=== PATIENT | female | born 1950 | race Caucasian/White ===

== ENCOUNTER 2017-07-19 14:32 | Observation (INO) | payer OTHER ==
[2017-07-19] VITALS (7 sets, daily range): BP systolic 96–145; BP diastolic 46–89; PULSE 72–97; RESP 15–20; TEMP 97.7–99.1; O2SAT 95–99
[~2017-07-19] VITALS: Ht 162.6 cm; Wt 80.0 kg
[2017-07-19] MEDS ORDERED: TRAZ50TA12 PO (15:31)
[2017-07-19] MEDS ORDERED: TIZA2CAP3 PO (15:31)
[2017-07-19] MEDS ORDERED: PANT20TA2 PO (15:31)
[2017-07-19] MEDS ORDERED: LORA0.5T PO (15:31)
[2017-07-19] MEDS ORDERED: LISI10TA3 PO (15:31)
[2017-07-19] MEDS ORDERED: SODIUM CHLOR 0.9% 1000 ML INJ 1,000 ML IV SCH (16:26)
[2017-07-19] MEDS ORDERED: NALOXONE HCL 2 MG/2 ML VIAL IV PUSH ONE (16:30)
[2017-07-19] MEDS ORDERED: SODIUM CHLORIDE 0.9% FLUSH 5 ML FLUSH IV FLUSH PRN (16:30)
--- NOTE | 2017-07-19 17:12 | RADRPT ---
EXAM DATE/TIME: 07/19/2017 16:55 [facility] COMPARISON: No previous studies available for comparison. INDICATIONS : Short of breath after syncopal episode. MEDICAL HISTORY : None. SURGICAL HISTORY : None. ENCOUNTER: Initial ACUITY: 1 day PAIN SCORE: Non-responsive. LOCATION: Bilateral chest FINDINGS: A single view of the chest demonstrates the lungs to be symmetrically aerated without evidence of mas s, infiltrate or effusion. Probable hiatal hernia. The cardiomediastinal contours are unremarkable. Osseous structures are intact. CONCLUSION: Probable hiatal hernia otherwise negative. Pio Esparza MD FACR on July 19, 2017 at 17:10 Board Certified Radiologist. This report was verified electronically.
--- NOTE | 2017-07-19 17:26 | RADRPT ---
EXAM DATE/TIME: 07/19/2017 17:06 [facility] COMPARISON: No previous studies available for comparison. INDICATIONS : Altered mental status, patient fell, abrasion right eye. RADIATION DOSE: 47.07 CTDIvol (mGy) MEDICAL HISTORY : None SURGICAL HISTORY : None. ENCOUNTER: Initial ACUITY: 3 days PAIN SCALE: Non-responsive LOCATION: cranial TECHNIQUE: Multiple contiguous axial images were obtained of the head. Using automated exposure control and adj ustment of the mA and/or kV according to patient size, radiation dose was kept as low as reasonably a chievable to obtain optimal diagnostic quality images. DICOM format image data is available electro nically for review and comparison. FINDINGS: CEREBRUM: The ventricles are normal for age. No evidence of midline shift, mass lesion, hemorrhage or acute in farction. No extra-axial fluid collections are seen. POSTERIOR FOSSA: The cerebellum and brainstem are intact. The 4th ventricle is midline. The cerebellopontine angle i s unremarkable. EXTRACRANIAL: The visualized portion of the orbits is intact. SKULL: The calvaria is intact. No evidence of skull fracture. Large venous lakes in the occiput. CONCLUSION: Negative for an acute process. Pio Esparza MD FACR on July 19, 2017 at 17:21 Board Certified Radiologist. This report was verified electronically.
--- NOTE | 2017-07-19 17:38 | RADRPT ---
EXAM DATE/TIME: 07/19/2017 17:06 [facility] COMPARISON: No previous studies available for comparison. INDICATIONS : Trauma, patient fell. RADIATION DOSE: 41.13 CTDIvol (mGy) ; Patient motion MEDICAL HISTORY : Non-responsive. SURGICAL HISTORY : Non-responsive. ENCOUNTER: Initial ACUITY: 3 days PAIN SCALE: Non-responsive LOCATION: neck TECHNIQUE: Volumetric scanning of the cervical spine was performed. Multiplanar reconstructions in the sagittal, coronal and oblique axial planes were performed. Using automated exposure control and adjustment o f the mA and/or kV according to patient size, radiation dose was kept as low as reasonably achievable to obtain optimal diagnostic quality images. DICOM format image data is available electronically f or review and comparison. FINDINGS: VERTEBRAE: Normal vertebral body height. ALIGNMENT: No evidence of subluxation. C2-C3: The bony spinal canal is normal in size. No evidence of disc bulge or herniation. The neural forami na are bilaterally patent. C3-C4: The bony spinal canal is normal in size. No evidence of disc bulge or herniation. The neural forami na are bilaterally patent. C4-C5: The bony spinal canal is normal in size. No evidence of disc bulge or herniation. The neural forami na are bilaterally patent. C5-C6: Mild uncinate ridging present. C6-C7: Mild uncinate ridging with minimal right neuroforaminal encroachment C7-T1: The bony spinal canal is normal in size. No evidence of disc bulge or herniation. The neural forami na are bilaterally patent. CONCLUSION: Negative for fracture. Pio Esparza MD FACR on July 19, 2017 at 17:34 Board Certified Radiologist. This report was verified electronically.
[2017-07-19] MEDS ORDERED: ONDANSETRON HCL 4 MG/2 ML VIAL IV PUSH ONE (18:00)
[2017-07-19 18:07] LABS: BASOPHIL % 0.4 % (0.0-2.0); EOSINOPHIL # 0.1 TH/MM3 (0-0.4); EOSINOPHIL % 1.2 % (0.0-4.0); HEMATOCRIT 33.6 % (35.0-46.0); HEMO FLAGS DIFF FINAL; LYMPH % 9.1 % (9.0-44.0); LYMPHOCYTE # 0.9 TH/MM3 (1.0-4.8); MEAN CELL VOLUME 93.3 FL (80.0-100.0); MEAN CORPUSCULAR HEMOGLOBIN 31.5 PG (27.0-34.0); MEAN CORPUSCULAR HGB CONC 33.7 % (32.0-36.0); MONO % 7.6 % (0.0-8.0); NEUT % 81.7 % (16.0-70.0); PLATELET COUNT 249 TH/MM3 (150-450); RED CELL DISTRIBUTION WIDTH 13.2 % (11.6-17.2); WHITE BLOOD COUNT 9.8 TH/MM3 (4.0-11.0)
--- NOTE | 2017-07-19 18:19 | PD ---
HPI Chief Complaint: Fall Time Seen by Provider: 14:49 Travel History International Travel<30 days: No Contact w/Intl Traveler<30days: No Traveled to known affect area: No History of Present Illness HPI This is a 67-year-old female with a history of chronic back pain, who was brought in by EMS after she reportedly has had several days of falls. Patient reports falling 3 days ago. She denies any loss of consciousness. She had 2 further falls today. She denies any pain but does appear to be weak and lethargic. The patient states she takes lorazepam, a muscle relaxer, and Lortabs for pain. She states that she has not taken more than her usual dose. There are no other complaints at the time of my examination. Medics were concerned that she may have had an intracranial injury and therefore brought her from the [facility] here. [facility] Past Medical History Tetanus Vaccination: Unknown Social History Alcohol Use: No Tobacco Use: No Substance Use: No Allergies-Medications (Allergen,Severity, Reaction): Coded Allergies: No Known Allergies (Unverified , 07/19/17) Reported Meds & Prescriptions Reported Meds & Active Scripts Active Reported Trazodone (Trazodone HCl) 50 Mg Tab 50 Mg PO HS Lorazepam 0.5 Mg Tab 0.5 Mg PO DAILY PRN Lisinopril 10 Mg Tab 10 Mg PO DAILY Tizanidine (Tizanidine HCl) 2 Mg Cap 2 Mg PO TID Pantoprazole (Pantoprazole Sodium) 20 Mg Tab 20 Mg PO DAILY Review of Systems ROS Limitations: Altered Mental Status (unable to get detailed history secondary to lethargy.) Except as stated in HPI: all other systems reviewed are Neg General / Constitutional: No: Fever, Chills HENT: No: Headaches, Neck Pain Cardiovascular: No: Chest Pain or Discomfort, Palpitations Respiratory: No: Cough, Shortness of Breath Gastrointestinal: No: Nausea, Vomiting, Abdominal Pain Genitourinary: No: Dysuria, Incontinence Musculoskeletal: No: Weakness, Pain Neurologic: Positive: Change in Mentation (lethargy), Slurred Speech (slight slurred speech), No: Weakness, Dizziness, Headache Physical Exam Narrative GENERAL: Well-developed well-nourished female in no acute distress. SKIN: Focused skin assessment warm/dry. HEAD: Abrasion to her right lateral eye. Normocephalic. EYES: Pupils equal and round and reactive at 3 mm. No scleral icterus. No injection or drainage. ENT: No nasal bleeding or discharge. Mucous membranes pink and dry. NECK: Trachea midline. No JVD. Supple. CARDIOVASCULAR: Regular rate and rhythm. No murmur appreciated. RESPIRATORY: No accessory muscle use. Clear to auscultation. Breath sounds equal bilaterally. GASTROINTESTINAL: Abdomen soft, non-tender, nondistended. MUSCULOSKELETAL: No obvious deformities. No clubbing. No cyanosis. No edema. NEUROLOGICAL: Awake and lethargic. No obvious cranial nerve deficits. Motor grossly within normal limits. Slurred speech Data Data Last Documented VS Vital Signs Date Time Temp Pulse Resp B/P (MAP) Pulse Ox O2 Delivery O2 Flow Rate FiO2 07/19/17 18:00 86 16 134/76 (95) 96 Nasal Cannula 2.00 07/19/17 14:39 97.7 Orders Orders Electrocardiogram (07/19/17 16:26) Ammonia (07/19/17 16:26) Complete Blood Count With Diff (07/19/17 16:26) Comprehensive Metabolic Panel (07/19/17 16:26) Creatine Kinase (Cpk) (07/19/17 16:26) Troponin I (07/19/17 16:26) Urinalysis - C+S If Indicated (07/19/17 16:26) Chest, Single Ap (07/19/17 16:26) Ct Brain W/O Iv Contrast(Rout) (07/19/17 16:26) Blood Glucose (07/19/17 16:26) Ecg Monitoring (07/19/17 16:26) Iv Access Insert/Monitor (07/19/17 16:26) Oximetry (07/19/17 16:26) Naloxone Inj (Narcan Inj) (07/19/17 16:30) Sodium Chloride 0.9% Flush (Ns Flush) (07/19/17 16:30) Sodium Chlor 0.9% 1000 Ml Inj (Ns 1000 M (07/19/17 16:26) Drug Screen, Random Urine (07/19/17 16:26) Alcohol (Ethanol) (07/19/17 16:26) Ct Cerv Spine W/O Contrast (07/19/17 16:26) Ondansetron Inj (Zofran Inj) (07/19/17 18:00) Labs Laboratory Tests Test 07/19/17 17:37 07/19/17 17:40 White Blood Count 9.8 TH/MM3 Red Blood Count 3.60 MIL/MM3 Hemoglobin 11.3 GM/DL Hematocrit 33.6 % Mean Corpuscular Volume 93.3 FL Mean Corpuscular Hemoglobin 31.5 PG Mean Corpuscular Hemoglobin Concent 33.7 % Red Cell Distribution Width 13.2 % Platelet Count 249 TH/MM3 Mean Platelet Volume 9.1 FL Neutrophils (%) (Auto) 81.7 % Lymphocytes (%) (Auto) 9.1 % Monocytes (%) (Auto) 7.6 % Eosinophils (%) (Auto) 1.2 % Basophils (%) (Auto) 0.4 % Neutrophils # (Auto) 8.0 TH/MM3 Lymphocytes # (Auto) 0.9 TH/MM3 Monocytes # (Auto) 0.7 TH/MM3 Eosinophils # (Auto) 0.1 TH/MM3 Basophils # (Auto) 0.0 TH/MM3 CBC Comment DIFF FINAL Differential Comment Blood Urea Nitrogen 70 MG/DL Creatinine 2.48 MG/DL Random Glucose 152 MG/DL Total Protein 6.3 GM/DL Albumin 3.1 GM/DL Calcium Level 7.8 MG/DL Alkaline Phosphatase 57 U/L Aspartate Amino Transf (AST/SGOT) 8 U/L Alanine Aminotransferase (ALT/SGPT) 15 U/L Total Bilirubin 0.6 MG/DL Sodium Level 137 MEQ/L Potassium Level 3.6 MEQ/L Chloride Level 107 MEQ/L Carbon Dioxide Level 19.7 MEQ/L Anion Gap 10 MEQ/L Estimat Glomerular Filtration Rate 19 ML/MIN Total Creatine Kinase 21 U/L Troponin I LESS THAN 0.02 NG/ML Ethyl Alcohol Level LESS THAN 3 MG/DL Ammonia 25 MCMOL/L [facility] Medical Decision Making Medical Screen Exam Complete: Yes Emergency Medical Condition: Yes Differential Diagnosis Traumatic brain injury versus metabolic derangement versus overmedication versus dehydration Narrative Course 67-year-old female brought from home after she reportedly called 911 for weakness and having falls. The patient has a history of chronic back pain. She takes narcotics and benzodiazepines as well as muscle relaxers for this. She was given 0.4 mg of Narcan. This did not wake her up properly. CT brain and cervical spine are negative for acute process. Chest x-ray shows no obvious acute process. She is noted to be in acute renal failure. She's been started on normal saline for this. She'll be admitted to the hospital. [facility], and she is agreeable to the admission. Diagnosis Primary Impression: Decreased level of consciousness Additional Impressions: Multiple falls Acute renal failure Jigar Barajas MD Jul 19, 2017 18:19
[2017-07-19 18:45] LABS: ANION GAP 10 MEQ/L (5-15); AST (GOT) 8 U/L (15-37); BICARBONATE 19.7 MEQ/L (21.0-32.0); BLOOD UREA NITROGEN 70 MG/DL (7-18); CHLORIDE 107 MEQ/L (98-107); GLOMERULAR FILTRATION RATE 19 ML/MIN (>89); POTASSIUM 3.6 MEQ/L (3.5-5.1); SODIUM (NA) 137 MEQ/L (136-145)
[2017-07-19 18:46] LABS: ALCOHOL LESS THAN 3 MG/DL (0-5); ALT (GPT) 15 U/L (10-53)
[2017-07-19 18:50] LABS: ALKALINE PHOSPHATASE 57 U/L (45-117); CREATINE KINASE 21 U/L (26-192); TOTAL BILIRUBIN ADULT 0.6 MG/DL (0.2-1.0)
[2017-07-19] MEDS ORDERED: MAGNESIUM HYDROXIDE SUSP 30 ML CUP PO PRN (20:00)
[2017-07-19] MEDS ORDERED: LACTULOSE SYRUP 20 GM/30 ML CUP PO PRN (20:00)
[2017-07-19] MEDS ORDERED: BISACODYL 10 MG SUPP RECTAL PRN (20:00)
[2017-07-19] MEDS ORDERED: SENNOSIDES 8.6 MG TAB PO PRN (20:00)
[2017-07-19] MEDS ORDERED: NALOXONE HCL 0.4 MG/ML AMP IV PUSH PRN (20:00)
[2017-07-19] MEDS ORDERED: SODIUM CHLOR 0.9% 1000 ML INJ 1,000 ML IV ONE (20:00)
[2017-07-19] MEDS ORDERED: SODIUM CHLORIDE 0.9% FLUSH 10 ML FLUSH IV FLUSH PRN (20:00)
[2017-07-19] MEDS ORDERED: ONDANSETRON HCL 4 MG/2 ML VIAL IVP PRN (20:00)
[2017-07-19] MEDS ORDERED: ACETAMINOPHEN 325 MG TAB PO PRN (20:00)
--- NOTE | 2017-07-19 21:31 | HHI.HP ---
[facility] Mando Stokes M.D. Admission Diagnosis acute renal failure, altered sensorium Diagnoses: Travel History International Travel<30 Days: No Contact w/Intl Traveler <30 Da: No Traveled to Known Affected Are: No History of Present Illness 67-year-old female with a past medical history significant for anxiety and hypertension presents to the emergency department after a fall. Per ED documentation, the patient reports falling approximately 3 days ago. She also states she fell today and hit her head. She states she came to the emergency department to be evaluated "for the flu." She endorses nausea and vomiting since Wednesday. The patient reports she takes lorazepam, a muscle relaxer and Lortab for pain. She states she has not taken more than her usual dose. She states the year is 1916 and that she is in [place]. She was given 0.4 mg of Narcan in the emergency department with no change in her mental status. Head CT negative for acute process. She has no lateralizing signs. Laboratory work significant for a BUN/creatinine of 70/2.48. UA and UDS are pending. Review of Systems Denies fever or chills Denies blurry vision, otorrhea, rhinorrhea Denies sore throat and cough No chest pain, palpitations, shortness of breath No abdominal pain Denies constipation/diarrhea/nausea/vomiting Denies muscle pain/weakness No rashes Past Family Social History Past Medical History Hypertension Anxiety Chronic pain Past Surgical History Ovarian tumor removal Hysterectomy Reported Medications Reported Meds & Active Scripts Active Reported Trazodone (Trazodone HCl) 50 Mg Tab 50 Mg PO HS Lorazepam 0.5 Mg Tab 0.5 Mg PO DAILY PRN Lisinopril 10 Mg Tab 10 Mg PO DAILY Tizanidine (Tizanidine HCl) 2 Mg Cap 2 Mg PO TID Pantoprazole (Pantoprazole Sodium) 20 Mg Tab 20 Mg PO DAILY Allergies: Coded Allergies: No Known Allergies (Unverified , 07/19/17) Family History Sister with diabetes mellitus. Social History Denies tobacco and alcohol. He endorses intermittent marijuana use. Denies other drugs. Physical Exam Vital Signs Vital Signs Date Time Temp Pulse Resp B/P (MAP) Pulse Ox O2 Delivery O2 Flow Rate FiO2 07/19/17 18:00 86 16 134/76 (95) 96 Nasal Cannula 2.00 07/19/17 17:00 92 16 102/70 (81) 96 Nasal Cannula 2.00 07/19/17 16:00 76 15 107/57 (74) 96 Nasal Cannula 2.00 07/19/17 15:00 72 15 96/46 (63) 96 Nasal Cannula 2.00 07/19/17 14:39 73 16 98 Room Air 07/19/17 14:39 97.7 74 15 99/51 (67) 97 Physical Exam GENERAL: Confused, female lying in bed SKIN: No rashes, ecchymoses or lesions. Cool and dry. HEAD: Atraumatic. Normocephalic. No temporal or scalp tenderness. EYES: Pupils equal round and reactive. Extraocular motions intact. No scleral icterus. No injection or drainage. ENT: Nose without bleeding, purulent drainage or septal hematoma. Throat without erythema, tonsillar hypertrophy or exudate. Uvula midline. Airway patent. NECK: Trachea midline. No JVD or lymphadenopathy. Supple, nontender, no meningeal signs. CARDIOVASCULAR: Regular rate and rhythm without murmurs, gallops, or rubs. RESPIRATORY: Clear to auscultation. Breath sounds equal bilaterally. No wheezes , rales, or rhonchi. GASTROINTESTINAL: Abdomen soft, non-tender, nondistended. No hepato-splenomegaly , or palpable masses. No guarding. MUSCULOSKELETAL: Extremities without clubbing, cyanosis, or edema. No joint tenderness, effusion, or edema noted. No calf tenderness. Negative Homans sign bilaterally. NEUROLOGICAL: Awake and alert. Cranial nerves II through XII intact. Motor and sensory grossly within normal limits. Normal speech. Laboratory Laboratory Tests Test 07/19/17 17:37 07/19/17 17:40 White Blood Count 9.8 Red Blood Count 3.60 Hemoglobin 11.3 Hematocrit 33.6 Mean Corpuscular Volume 93.3 Mean Corpuscular Hemoglobin 31.5 Mean Corpuscular Hemoglobin Concent 33.7 Red Cell Distribution Width 13.2 Platelet Count 249 Mean Platelet Volume 9.1 Neutrophils (%) (Auto) 81.7 Lymphocytes (%) (Auto) 9.1 Monocytes (%) (Auto) 7.6 Eosinophils (%) (Auto) 1.2 Basophils (%) (Auto) 0.4 Neutrophils # (Auto) 8.0 Lymphocytes # (Auto) 0.9 Monocytes # (Auto) 0.7 Eosinophils # (Auto) 0.1 Basophils # (Auto) 0.0 CBC Comment DIFF FINAL Differential Comment Blood Urea Nitrogen 70 Creatinine 2.48 Random Glucose 152 Total Protein 6.3 Albumin 3.1 Calcium Level 7.8 Alkaline Phosphatase 57 Aspartate Amino Transf (AST/SGOT) 8 Alanine Aminotransferase (ALT/SGPT) 15 Total Bilirubin 0.6 Sodium Level 137 Potassium Level 3.6 Chloride Level 107 Carbon Dioxide Level 19.7 Anion Gap 10 Estimat Glomerular Filtration Rate 19 Total Creatine Kinase 21 Troponin I LESS THAN 0.02 Ethyl Alcohol Level LESS THAN 3 Ammonia 25 Result Diagram: 07/19/17 1737 07/19/17 173 Caprini VTE Risk Assessment Caprini VTE Risk Assessment: Mod/High Risk (score >= 2) Caprini Risk Assessment Model Point Value = 1 Point Value = 2 Point Value = 3 Point Value = 5 Age 41-60 Minor surgery BMI > 25 kg/m2 Swollen legs Varicose veins or History of unexplained or recurrent spontaneous Oral contraceptives or hormone replacement Sepsis (< 1 month) Serious lung disease, including pneumonia (< 1 month) Abnormal pulmonary function Acute myocardial infarction Congestive heart failure (< 1 month) History of inflammatory bowel disease Medical patient at bed rest Age 61-74 Arthroscopic surgery Major open surgery (> 45 min) Laparoscopic surgery (> 45 min) Malignancy Confined to bed (> 72 hours) Immobilizing plaster cast Central venous access Age >= 75 History of VTE Family history of VTE Factor V Leiden Prothrombin [id number] Lupus anticoagulant Anticardiolipin antibodies Elevated serum homocysteine Heparin-induced thrombocytopenia Other congenital or acquired thrombophilia Stroke (< 1 month) Elective arthroplasty Hip, pelvis, or leg fracture Acute spinal cord injury (< 1 month) Prophylaxis Regimen Total Risk Factor Score Risk Level Prophylaxis Regimen 0-1 Low Early ambulation 2 Moderate Order ONE of the following: *Sequential Compression Device (SCD) *Heparin 5000 units SQ BID 3-4 Higher Order ONE of the following medications: *Heparin 5000 units SQ TID *Enoxaparin/Lovenox 40 mg SQ daily (WT < 150 kg, CrCl > 30 mL/min) *Enoxaparin/Lovenox 30 mg SQ daily (WT < 150 kg, CrCl > 10-29 mL/min) *Enoxaparin/Lovenox 30 mg SQ BID (WT < 150 kg, CrCl > 30 mL/min) AND/OR *Sequential Compression Device (SCD) 5 or more Highest Order ONE of the following medications: *Heparin 5000 units SQ TID (Preferred with Epidurals) *Enoxaparin/Lovenox 40 mg SQ daily (WT < 150 kg, CrCl > 30 mL/min) *Enoxaparin/Lovenox 30 mg SQ daily (WT < 150 kg, CrCl > 10-29 mL/min) *Enoxaparin/Lovenox 30 mg SQ BID (WT < 150 kg, CrCl > 30 mL/min) AND *Sequential Compression Device (SCD) Assessment and Plan Assessment and Plan 67-year-old female presents to the emergency department status post several falls. Found to be in acute renal failure. 1. Acute renal failure BUN/creatinine 70/2.48 IV fluid hydration Monitor BMP 2. Altered mental status May be secondary to polypharmacy Urine drug screen pending Alcohol level less than 3 Ammonia within normal limits Holding home Xanax, Lortab and muscle relaxer 3. Multiple falls Likely secondary to AMS Orthostatics Telemetry Plan as above PT consulted 4. Hypertension Continue home lisinopril 5. GERD Continue home Protonix FEN NS at 125 cc/hr Heart healthy diet Electrolytes: Monitor and replete when necessary Heparin Case discussed with ER physician at length Sonali Isidro MD Jul 19, 2017 21:31
[2017-07-19] MEDS: SODIUM CHLORIDE 0.9% FLUSH 10 ML FLUSH IV FLUSH SCH (23:49)
[2017-07-19] MEDS: HEPARIN SODIUM - SQ 10,000 UNITS/ML VIAL SQ SCH (23:49)
[2017-07-20 00:26] LABS: BACTERIA, URINE RARE /hpf; BLOOD, URINE NEG (NEG); GLUCOSE,URINE NEG (NEG); HYALINE CAST, URINE 1 /lpf (RARE); KETONE, URINE NEG (NEG); MUCUS URINE FEW /lpf (OCC); NITRITE,URINE NEG (NEG); SQUAMOUS EPITHELIAL CELL URINE 1 /hpf (0-5); URINE COLOR LIGHT-YELLOW (YELLW/STRAW)
[2017-07-20 00:27] LABS: COMMENT (UR) CATH-CULTURE IND; CULTURE IF INDICATED CATH CULTURE IND
[2017-07-20 04:59] VITALS: PULSE 86
[2017-07-20 05:12] VITALS: BP 122/68; PULSE 93; RESP 20; TEMP 98.4; O2SAT 99
[2017-07-20] MEDS: HEPARIN SODIUM - SQ 10,000 UNITS/ML VIAL SQ SCH (07:25)
[2017-07-20 07:29] LABS: BICARBONATE 20.7 MEQ/L (21.0-32.0); POTASSIUM 4.1 MEQ/L (3.5-5.1)
[2017-07-20 07:34] LABS: AUTOMATED NEUTROPHIL # 9.5 TH/MM3 (1.8-7.7); BASOPHIL % 0.4 % (0.0-2.0); EOSINOPHIL # 0.1 TH/MM3 (0-0.4); EOSINOPHIL % 0.5 % (0.0-4.0); HEMATOCRIT 36.2 % (35.0-46.0); HEMO FLAGS DIFF FINAL; LYMPH % 9.2 % (9.0-44.0); MEAN CELL VOLUME 92.4 FL (80.0-100.0); MEAN CORPUSCULAR HEMOGLOBIN 30.3 PG (27.0-34.0); MEAN CORPUSCULAR HGB CONC 32.8 % (32.0-36.0); MONO % 4.9 % (0.0-8.0); PLATELET COUNT 302 TH/MM3 (150-450); RED BLOOD COUNT 3.92 MIL/MM3 (4.00-5.30); RED CELL DISTRIBUTION WIDTH 12.9 % (11.6-17.2); WHITE BLOOD COUNT 11.2 TH/MM3 (4.0-11.0)
[2017-07-20 08:10] VITALS: O2SAT 97
[2017-07-20 08:34] VITALS: BP 143/69; PULSE 88; RESP 20; TEMP 97.6; O2SAT 97
[2017-07-20] MEDS ORDERED: PANTOPRAZOLE SOD 20 MG DELAYED RELEASE TAB PO SCH (09:00)
[2017-07-20] MEDS ORDERED: LISINOPRIL 10 MG TAB PO SCH (09:00)
[2017-07-20] MEDS: SODIUM CHLORIDE 0.9% FLUSH 10 ML FLUSH IV FLUSH SCH (10:30)
[2017-07-20] MEDS ORDERED: PANT20TA2 PO (11:26)
[2017-07-20] MEDS ORDERED: ONDA4TAB7 SL (11:32)
[2017-07-20] MEDS ORDERED: AMLO2.5T PO (11:40)
--- NOTE | 2017-07-20 11:45 | HHI.PR ---
Subjective Remarks And says she is feeling better. Would like to go home. Reports nausea has improved. She says she tolerated breakfast without issue. She has multiple neighbors who will check on her. She says she has a son, but declines for me to call and talk with him. sHe is oriented 3. She does report running out of omeprazole 2 weeks ago. Objective Vital Signs Date Time Temp Pulse Resp B/P (MAP) Pulse Ox O2 Delivery O2 Flow Rate FiO2 07/20/17 08:34 97.6 88 20 143/69 (93) 97 07/20/17 08:10 97 21 07/20/17 05:12 98.4 93 20 122/68 (86) 99 07/20/17 04:59 86 07/20/17 03:39 21 07/19/17 23:58 99.1 97 18 134/60 (84) 99 07/19/17 22:03 98.6 96 20 127/61 (83) 95 142/79 (100) 145/89 (107) 07/19/17 21:26 07/19/17 18:00 86 16 134/76 (95) 96 Nasal Cannula 2.00 07/19/17 17:00 92 16 102/70 (81) 96 Nasal Cannula 2.00 07/19/17 16:00 76 15 107/57 (74) 96 Nasal Cannula 2.00 07/19/17 15:00 72 15 96/46 (63) 96 Nasal Cannula 2.00 07/19/17 14:39 73 16 98 Room Air 07/19/17 14:39 97.7 74 15 99/51 (67) 97 I/O 07/19/17 07/19/17 07/19/17 07/20/17 07/20/17 07/20/17 07:00 15:00 23:00 07:00 15:00 23:00 Intake Total 1120 ml Output Total 200 ml Balance 1120 ml -200 ml Intake Oral 120 ml IV Total 1000 ml Output Urine Total 200 ml # Voids 7 # Bowel Movements 3 Result Diagram: 07/20/1762907/20/17629 Objective Remarks GENERAL: Lying in bed. Somnolent, however awake for exam. Oriented 3. SKIN: Warm and dry. HEAD: Normocephalic. EYES: No scleral icterus. No injection or drainage. NECK: Supple, trachea midline. No JVD. CARDIOVASCULAR: Regular rate and rhythm without murmurs, gallops, or rubs. RESPIRATORY: Breath sounds equal bilaterally. No accessory muscle use. GASTROINTESTINAL: Abdomen soft, non-tender, nondistended. MUSCULOSKELETAL: No cyanosis, or edema. BACK: Nontender without obvious deformity. No CVA tenderness. A/P Assessment and Plan 67-year-old female presents to the emergency department status post several falls. Found to be in acute renal failure. //Acute renal failure -Creatinine 2.5 on admission. Improved. 1.0 today. BUN 70 on admission, improved to 40 today. Patient says nausea improved. I would like to observe patient on however she is oriented 3, would like to go home. //Altered mental status May be secondary to polypharmacy versus uremia. -Urine drugs negative. -Improved today. Patient will discontinue narcotics, benzodiazepines pain. //Multiple falls Static negative, no events on telemetry. Likely secondary to polypharmacy. She reports taking narcotics, benzos, however urine drug screen is negative. This is suspicious for diversion versus falsified drug testing. Recommend patient stopped taking narcotics. She conveys understanding. Due to suspicion for diversion, may need to contact primary care doctor. Stat repeat drug screen. //Hypertension discontinue home lisinopril //GERD Continue home Protonix. hiatal hernia on chest x-ray. Patient ran out of Protonix 2 weeks ago. Will restart. Discharge Planning Repeat drug screen pending. Plan discharge home. Marco A Quinn MD Jul 20, 2017 11:45
--- NOTE | 2017-07-20 15:15 | EKG ---
Date Performed: 07/19/2017 Time Performed: 14:45:53 PTAGE: 67 years EKG: Sinus rhythm NONSPECIFIC T-WAVE ABNORMALITY BORDERLINE ECG NO PREVIOUS TRACING DOCTOR: Sherlyn Turner Interpretating Date/Time 07/20/2017 15:12:32
== END 2017-07-20 13:57 | disposition home or self-care (01) ==
LOC: NEPE 14:32 → NEDA 20:00 → INTOOBSV 20:00 → NEPGCP 21:05
PROVIDERS: ADMIT Internal Medicine; ATTEND Internal Medicine
DX: N17.9 Acute kidney failure, unspecified (principal); S00.211A Abrasion of right eyelid and periocular area, initial encounter; R41.82 Altered mental status, unspecified; I10 Essential (primary) hypertension; W19.XXXA Unspecified fall, initial encounter; R11.2 Nausea with vomiting, unspecified; G89.29 Other chronic pain; M54.9 Dorsalgia, unspecified; R06.02 Shortness of breath; R82.99 Other abnormal findings in urine; K21.9 Gastro-esophageal reflux disease without esophagitis
CPT/HCPCS: 70450; 71010; 72125; 80048; 80053; 80307; 81001; 82140; 82550; 84484; 85025; 87086; 87804; 93005; 96361; 96372; 96374; 96376; 97162; 99285; G0378; G8987; G8988; J1644; J2310; J2405; J7030